=== PATIENT | female | born 1985 | race Caucasian/White ===

== ENCOUNTER 2017-03-14 23:39 | Emergency (ER) | payer MEDICAID ==
[~2017-03-14] VITALS: Ht 157.5 cm; Wt 95.3 kg
[2017-03-14 23:40] VITALS: BP 129/93; PULSE 74; RESP 18; TEMP 98.1; O2SAT 98
--- NOTE | 2017-03-15 01:00 | NUR ---
Patient to ER bed 6 to gown for evaluation. Side rails up. Report given to JHON TATE.
--- NOTE | 2017-03-15 01:05 | NUR ---
Pt presents to ED with c/o bilateral ankles swelling and pain 4/10 x4 days. Pt ambulatory, no edema noted at ankles. A&Ox4, denies SOb or chestpain, denies N/V/D. Skin intact. Will continue to monitor
--- NOTE | 2017-03-15 01:16 | NUR ---
ER at bedside examining patient.
[2017-03-15 01:58] LABS: BASOPHILS % (AUTO) 0.5 % (0.0-2.0); EOSINOPHILS # (AUTO) 0.5 K/uL (0.0-0.4); EOSINOPHILS % (AUTO) 5.9 % (0.0-4.0); HEMATOCRIT 36.1 % (36-48); LYMPHOCYTES # (AUTO) 1.6 K/uL (1.0-5.5); LYMPHOCYTES % (AUTO) 19.3 % (20.5-51.5); MEAN CORPUSCULAR HEMOGLOBIN 28 pg (27-31); MEAN CORPUSCULAR HGB CONC 33 % (32-36); MEAN CORPUSCULAR VOLUME 84 fL (79.0-98.0); MONOCYTES # (AUTO) 0.5 K/uL (0.0-1.0); MONOCYTES % (AUTO) 6.5 % (1.7-9.3); NEUTROPHILS # (AUTO) 5.8 K/uL (1.8-7.7); NEUTROPHILS % (AUTO) 67.8 % (40.0-70.0); PLATELET COUNT (AUTO) 277 K/uL (130-430); RED BLOOD CELL COUNT(AUTO) 4.27 MIL/uL (4.2-6.2); RED CELL DISTRIBUTION WIDTH 12.3 % (9.0-15.0); WHITE BLOOD COUNT (AUTO) 8.4 K/uL (4.8-10.8)
[2017-03-15 02:22] LABS: CALCIUM 8.5 mg/dL (8.4-11.0); CREATININE 0.8 mg/dL (0.55-1.30); POTASSIUM 3.5 mmol/L (3.5-5.1)
[2017-03-15 02:35] LABS: ALBUMIN 3.4 g/dL (3.4-4.8); THYROID STIMULATING HORMONE 0.58 uIu/mL (0.34-4.82); TOTAL BILIRUBIN 0.3 mg/dL (0.0-1.0); TOTAL PROTEIN, SERUM 7.4 g/dL (6.4-8.3)
[2017-03-15 02:55] LABS: BILIRUBIN,URINE NEGATIVE (NEGATIVE); BLOOD, URINE NEGATIVE (NEGATIVE); CLARITY/URINE CLEAR (CLEAR); COLOR,URINE YELLOW (YELLOW); GLUCOSE,URINE NEGATIVE (NEGATIVE); KETONES,URINE NEGATIVE (NEGATIVE); LEUKOCYTE ESTERASE ,URINE NEGATIVE (NEGATIVE); NITRITE, URINE NEGATIVE (NEGATIVE); PROTEIN URINE NEGATIVE (NEGATIVE)
[2017-03-15 02:57] VITALS: BP 124/81; PULSE 76; RESP 18; TEMP 98; O2SAT 98
--- NOTE | 2017-03-15 02:57 | NUR ---
Patient given written and verbal discharge instructions and verbalizes understanding. ER MD Root discussed with patient the results and treatment provided. Patient in stable condition. ID arm band removed. Rx of spironolactone & motrin given. Patient educated on pain management and to follow up with PMD. Pain Scale 0/10. Opportunity for questions provided and answered.
== END 2017-03-15 02:57 | disposition home or self-care (01) ==
LOC: SED 23:39
DX: R60.0 Localized edema (principal); J45.909 Unspecified asthma, uncomplicated; F17.200 Nicotine dependence, unspecified, uncomplicated
CPT/HCPCS: 36415; 80053; 81003; 81025; 83880; 84443-TC; 85025; 99284